=== PATIENT | female | born 1950 ===

== ENCOUNTER 2022-01-05 11:16 | Emergency (ER) | payer MEDICARE ==
[~2022-01-05] VITALS: Ht 167.6 cm; Wt 71.8 kg
[2022-01-05 11:32] VITALS: TEMP 100.6
[2022-01-05 12:17] LABS: ALANINE AMINOTRANSFERASE 11 U/L (0-55); ALBUMIN 4.2 gm/dL (3.4-4.8); ALKALINE PHOSPHATASE 47 U/L (40-150); ANION GAP 12 mmol/L (7-16); AST,SGOT 16 U/L (5-34); BILIRUBIN,TOTAL 0.6 mg/dL (0.2-1.2); BLOOD UREA NITROGEN 15 mg/dL (10-20); CARBON DIOXIDE 25 mmol/L (23-31); CHLORIDE 98 mmol/L (98-107); CREATININE, serum 1.53 mg/dL (0.57-1.11); GLUCOSE 291 mg/dL (70-99); POTASSIUM 3.9 mmol/L (3.5-4.5); SODIUM 135 mmol/L (136-145); TOTAL PROTEIN 7.6 gm/dL (6.2-8.1)
[2022-01-05 12:19] LABS: BASO % 0.3 % (0.0-2.0); EOS # 0.1 K/mm3 (0.0-0.7); EOS % 0.9 % (0.0-4.0); GRAN # 3.7 K/mm3 (1.4-6.5); GRAN % 65.1 % (42.2-75.2); HEMATOCRIT 37.8 % (37.0-47.0); HEMOGLOBIN 13.2 g/dl (12.5-16.0); LYMPH # 1.6 K/mm3 (1.2-3.4); LYMPH % 27.9 % (20.0-51.0); MEAN CELL VOLUME 85 fl (80.0-100.0); MEAN CORPUSCULAR HEMOGLOBIN 30 pg (27-31); MEAN CORPUSCULAR HGB CONC 35 g/dl (33.0-37.0); MEAN PLATELET VOLUME 11.6 fl (7.4-10.4); MONO # 0.3 K/mm3 (0.1-0.6); MONO % 5.6 % (1.7-9.3); PLATELET COUNT 223 K/mm3 (130-400); RED BLOOD COUNT 4.45 M/mm3 (4.10-5.30); REDCELL DISTRIBUTION WIDTH-CV 13.1 % (11.5-14.5)
[2022-01-05 12:26] LABS: TROPONIN-I < 0.010 ng/mL (0.00-0.033)
[2022-01-05 14:57] LABS: COLLECTION METHOD CLEAN CATCH
[2022-01-05 15:04] LABS: PH 6 (5-8); SQUAMOUS EPITHELIAL 0-2 /hpf (0-10); URINE APPEARANCE Clear (CLEAR/HAZY); URINE BACTERIA None Seen /hpf (NONE SEEN); URINE BILIRUBIN Negative (NEGATIVE); URINE BLOOD Negative (NEGATIVE); URINE COLOR Yellow (YELLOW); URINE GLUCOSE 3+ (NEGATIVE); URINE KETONE Negative (NEGATIVE); URINE LEUKOCYTE ESTERASE Negative (NEGATIVE); URINE NITRATE Negative (NEGATIVE); URINE PROTEIN(semi-quant) Negative (NEGATIVE); URINE UROBILINOGEN Negative (NEGATIVE)
[2022-01-05] MEDS ORDERED: NORVASC 10MG10 MG PO (15:20)
[2022-01-05] MEDS ORDERED: PEPCID 20MG TAB20 MG PO (15:27)
[2022-01-05] MEDS ORDERED: TOPROL XL 50MG50 MG PO (15:27)
[2022-01-05] MEDS ORDERED: GLUCOPHAGE500 MG/TAB PO (15:27)
[2022-01-05] MEDS ORDERED: CARAFATE S1 GM/10 ML PO (15:27)
[2022-01-05] MEDS ORDERED: CATAPRES 0.1MG0.1 MG PO (15:27)
[2022-01-05 16:06] VITALS: BP 157/108; PULSE 92
== END 2022-01-05 16:22 | disposition home or self-care (01) ==
LOC: COL.ER 11:16
PROVIDERS: Personal Emergency Response Attendant
DX: N28.9 Disorder of kidney and ureter, unspecified (principal); I10 Essential (primary) hypertension; E11.9 Type 2 diabetes mellitus without complications; Z20.822 Contact with and (suspected) exposure to COVID-19
CPT/HCPCS: J7030; Q9967

== ENCOUNTER 2022-01-19 08:53 | Outpatient (CLI) | payer MEDICARE ==
[~2022-01-19] VITALS: Ht 167.6 cm; Wt 75.0 kg
[~2022-01-19 08:53] MED LIST: CARAFATE S1 GM/10 ML PO; CATAPRES 0.1MG0.1 MG PO; GLUCOPHAGE500 MG/TAB PO; NORVASC 10MG10 MG PO; PEPCID 20MG TAB20 MG PO; TOPROL XL 50MG50 MG PO
[2022-01-19] MEDS ORDERED: CARDIZEM 30MG T30 MG PO (09:34)
[2022-01-19] MEDS ORDERED: ELIQUIS 5MG PO (09:41)
[2022-01-19] MEDS ORDERED: NOVOLOG FLEX100 U/ML SQ (09:48)
[2022-01-19] MEDS ORDERED: PRINZIDE 25 MG-1 TAB PO (09:49)
[2022-01-19] MEDS ORDERED: ASPIRIN E.C. 8181 MG PO (09:49)
[2022-01-19 09:50] LABS: INR 1.1 (0.8-3.0); PROTHROMBIN TIME 12.7 SECONDS (9.7-12.8)
[2022-01-19] MEDS ORDERED: PRIL40 PO (09:50)
[2022-01-19 09:52] LABS: POTASSIUM 3.4 mmol/L (3.5-4.5)
[2022-01-19 10:22] LABS: THYROID STIMULATING HORMONE 2.611 uIU/mL (0.350-4.940)
--- NOTE | 2022-01-19 10:25 | NUR ---
pt sits up in bed, no c/o, apresoline 20mg iv given over 4 min. as ordered.
--- NOTE | 2022-01-19 10:45 | NUR ---
b/p at 143/98 pulse 118 sats 100%, takes apple juice HOB elevated pt c/o dizziness, b/p 109/70 pulse at 116, skin warm and dry, pt placed supine, b/p at 76/58, Gustavo [employer] called at 1110 new orders recieved, 1/2 NS started iv to go over 1 hour, blood sugar at 247, pt remains supine/flat, no c/o chest pain, skin warm and dry
--- NOTE | 2022-01-19 11:20 | NUR ---
b/p 98/61 at 1120 and 114/76 pulse at 100, Gustavo GEOLOGICAL AIDE here to see pt. pt feeling better, dizziness subsided
[2022-01-19] MEDS ORDERED: CARDIZEM CD 12120 MG PO (11:49)
--- NOTE | 2022-01-19 11:50 | NUR ---
b/p at 106/69 pulse 98, pt hob elevated, no c/o increase dizziness. b/p 109/77 pulse97, reviewed health summary discharge paper with pt and daughter, pt will have medcation changes, pt took home meds earlier for b/p, marked on paper what home meds pt took, pt will pick up man new RX, and will stop b/p med that was d'cd. has followup appt made at office also
--- NOTE | 2022-01-19 12:00 | NUR ---
115/73, pulse 99 sats 100%, pt sits on side of bed, takes jello. fluids infused, iv d'cd intact, pt dressed assisted by daughter, no c/o or further questions, discharged via w/c at 1215 to car
== END 2022-01-19 12:15 | disposition home or self-care (01) ==
LOC: COL.RAD 08:53
PROVIDERS: Internal Medicine Interventional Cardiology
DX: I48.91 Unspecified atrial fibrillation (principal); I10 Essential (primary) hypertension; E11.9 Type 2 diabetes mellitus without complications
CPT/HCPCS: J0360; J2704